=== PATIENT | female | born 1995 | race Caucasian/White ===

== ENCOUNTER 2018-11-01 06:04 | Outpatient (CLI) | payer OTHER ==
[~2018-11-01] VITALS: Ht 167.6 cm; Wt 88.3 kg
--- NOTE | 2018-11-01 07:36 | IPNPDOC ---
Text Note Date of Service The patient was seen on 11/01/18. NOTE 23 yo at 40+1 weeks gestation presented to L&D with worsening contraction pain throughout the day. She had her membranes stripped on Monday. She denies any vaginal bleeding or leakage of fluid. She endorses excellent movement. is uncomplicated. Chaperoned by L&D RN Vitals - VSS, afebrile, normotensive, non tachycardic General - AAO3, sitting up in bed, NAD Abdomen - Gravid uterus, no fundal tenderness Cervix - 2/50/-3 FHR tracing - NST reactive with moderate variability, +accels, no decels, ctx present Patient not in active labor. status reassuring. Discharged home with return precautions. IOL scheduled for next week. DO HELENA Ko CHRISTOPHER J. DO Nov 01, 2018 07:36
[2018-11-01] MEDS ORDERED: PRENTAB9 PO (14:49)
== END 2018-11-01 07:45 | disposition home or self-care (01) ==
LOC: M LDO 06:04
PROVIDERS: ATTEND Obstetrics & Gynecology
DX: O47.1 False labor at or after 37 completed weeks of gestation (principal); Z3A.40 40 weeks gestation of pregnancy
CPT/HCPCS: 59025; G0378; G0463

== ENCOUNTER 2018-11-01 13:39 | Inpatient (IN) | payer OTHER ==
[~2018-11-01] VITALS: Ht 195.6 cm; Wt 97.5 kg
[2018-11-01] MEDS ORDERED: PRENTAB9 PO (14:49)
[2018-11-01] MEDS ORDERED: LACTATED RINGER'S 1000 ML IV STA (16:26)
[2018-11-01] MEDS: LR 1,000 ML IV SCH (16:26)
[2018-11-01 16:36] VITALS: BP 130/82
--- NOTE | 2018-11-01 16:59 | HPEPDOC ---
Obstetrical History & Physical General Date of Admission 11/01/2018 History of Present Illness 23yo at 40+1wks presents to LND with regular, painful contractions that have become longer and stronger throughout the day. Pt reports +FM, denies LOF/VB. Pt is GBS Negative, HIV Negative, Blood Type O Pos. Chief Complaint: Contractions, term Information Provided By: Patient Age: 23 : 1 Term: 0 Pre-term: 0 Abortions: 0 Livin Care Care: Good Care Dating Final EDC: Oct 31, 2018 Final EDC for Daily Update: Oct 31, 2018 Final EDC by: LMP LMP: Jan 24, 2018 1st Trimester Date: Mar 23, 2019 Antepartum Course Diagnos(e)s Uncomplicated . Height (inches): 66 Pre- weight (lbs.): 165 Admission Weight (lbs.): 192 Change in Weight (lbs.): 27 Past Medical History Past Obstetrical History : Past Obstetrical History: Primgravida Past Medical History Surgical History: Denies/None Family History Significant Family History: No pertinent family hx Social History Marital Status: Family situation: Spouse/partner home Psychosocial History: No pertinent psych hx * Smoker: non-smoker Alcohol: Denies Drugs: denies Imunizations Tdap status: current Allergies Coded Allergies: No Known Allergies (Unverified , 11/01/18) Medications Scheduled No.137/Iron/Folic Acd ( Vitamin Tablet) 1 Each Tablet, 1 TAB PO DAILY Physical Examination Physical Examination GENERAL: Alert and oriented times three. BREAST: . ABDOMEN: Gravid and non-tender to touch. FETUS: Is vertex by SVE HEART RATE: Regular rate and rhythm. LUNGS: CTA EXTREMITIES: No edema. No clonus. Pertinent Laboratoy Data Blood Type: O+ Anatomy Ultrasound Ultrasound Date: Jun 13, 2018 Placenta Location: Anterior Normal Anatomy: Yes Placenta Previa: No Vaginal Examination Dilation: 4 cm Effacement: 70% Station: -2 Cervical Consistency: Soft Cervical Position: Middle Presentation: Cephalic presentation Assessment Heart Rate (FHR): 130 Variability: Moderate Accelerations: Positive Decelerations: None Tocometer Contractions: Yes Frequency: regular Assessment/Plan Assessment A: Early active labor, Category I FHT, VSS, EFW 3600g O+, HIV Negative, GBS Negative Plan P: Admit to LND Counseled on labor, r/b/a, possible augmentation; pt consented for admission and delivery PIV start, admission labs drawn Intermittent monitoring with Category I tracing PO and IV hyrdration can have regular diet; change to clear liquids with augmentation Expectant Management Reexamine in 4-6 hours, consider AROM or start pitocin PRN Anticipate Consult with OB if indicated MADELINE GOMES CNM Nov 01, 2018 16:59
[2018-11-01 17:13] LABS: HEMATOCRIT 40.4 % (36.0-47.0); HEMOGLOBIN 13.5 g/dl (12.0-15.5); MEAN CORPUSCULAR HEMOGLOBIN 29.4 pg (27.0-33.0); MEAN CORPUSCULAR HGB CONC 33.4 g/dl (32.0-36.5); PLATELET COUNT, AUTOMATED 269 10^3/uL (150-450); RED BLOOD COUNT 4.59 10^6/uL (4.00-5.40); WHITE BLOOD COUNT 16.8 10^3/uL (4.0-10.0)
[2018-11-01 17:36] VITALS: BP 130/89
[2018-11-01 19:22] VITALS: BP 133/82
--- NOTE | 2018-11-01 20:21 | IPNPDOC ---
Obstetrical Progress Note Date of Service Nov 01, 2018 Subjective t tollerating labor well. excellent control. Pt declines epidural or pain meds. Really wants to try to avoid pain meds. Membranes intact. Pt was check at change of shift ~ 6:3-7pm and was 6 cm Objective Vital Signs Date Time Temp Pulse Resp B/P (MAP) Pulse Ox O2 Delivery O2 Flow Rate FiO2 11/01/18 16:36 80 16 130/82 (98) Assessment Heart Rate (FHR): 145 Variability: Moderate Accelerations: Positive Decelerations: Late, Variable Heart Rate Tracing: Category II Tocometer Contractions: Yes Frequency: every 2-5 min. Duration: greater than 60 seconds Strength: palpated as moderate Assessment and Plan Age: 23 : 1 Term: 0 Pre-term: 0 Abortions: 0 Livin Status: Reassuring Group B Streptococcus: Negative Anticipate: Vaginal Delivery Additional Comments Discussed pros and cons of rupturing membranes. Since she is doing well. in good control, will not rupture membranes SHINE EDGE MD Nov 01, 2018 20:21
[2018-11-01 20:52] VITALS: BP 128/75
[2018-11-01] MEDS ORDERED: OXYTOCIN 30 UNITS IN 0.9% NaCl 500ML IV BAG (J2590) As Ordered ONE (21:33)
[2018-11-01 23:58] VITALS: BP 130/86
[2018-11-02] MEDS: LR 1,000 ML IV SCH ×2 (00:26→19:11)
[2018-11-02 00:28] VITALS: BP 127/58
[2018-11-02 00:43] VITALS: BP 144/63
[2018-11-02 00:58] VITALS: BP 134/68
[2018-11-02] MEDS ORDERED: OXYTOCIN DRIP 30 UNITS in APPROPRIATE DILUENT 1 EA IV SCH (01:02)
--- NOTE | 2018-11-02 01:02 | DNPDOC ---
[facility] Delivery Note Delivery Note DATE OF DELIVERY: [Nov 022018] PREDELIVERY DIAGNOSIS: [41]-[1]/7 weeks' gestation and labor. POST DELIVERY DIAGNOSIS: Delivered. PROCEDURE: [Spontaneous vaginal delivery EMPLOYMENT TRAINING SPECIALIST: Dr. Joe] ANESTHESIA: [none for Labor and delivery, local for repair of First degree laceration]. ESTIMATED BLOOD LOSS: [300] mL. FINDINGS: [7] pound [13] ounce [female] , Score [8]/[9] DELIVERY SUMMARY: Patient is a [23]-year-old [1] now para [0]-[0]-[o]-[o] who was admitted to labor and delivery adited in labor. Arom , clear fluid. over first degree perineallaceration repaired with 3- vicryl . Rectal-vaginal exam after repair. Cord blood obtained for blood type and antibody screen. Sponge count 5/5. SHINE EDGE MD Nov 02, 2018 01:02
[2018-11-02] MEDS ORDERED: DOCUSATE SODIUM 100 MG CAP PO PRN (01:15)
[2018-11-02] MEDS ORDERED: MEASLES,MUMPS,RUBELLA VACCINE INJ (MMR-II) (90707) SC SCH (01:15)
[2018-11-02] MEDS ORDERED: ACETAMINOPHEN TAB 650MG DOSE (2X325MG) PO PRN (01:15)
[2018-11-02] MEDS ORDERED: IBUPROFEN 600 MG TAB PO PRN (01:15)
[2018-11-02] MEDS ORDERED: DIBUCAINE 1% OINTMENT 30GM TOP PRN (01:15)
[2018-11-02] MEDS ORDERED: ACETAMINOPHEN 500 MG TAB PO PRN (01:15)
[2018-11-02] MEDS ORDERED: ANUSOL HC CREAM 30GM TOP PRN (01:15)
[2018-11-02] MEDS ORDERED: LIDOCAINE 1% MDV 20ML VIAL INFIL ONE (01:15)
[2018-11-02] MEDS ORDERED: IBUPROFEN 800 MG TAB PO PRN (01:15)
[2018-11-02] MEDS ORDERED: RHOGAM 300 MCG (1500 IU) INJ (J2790) IM SCH (01:15)
[2018-11-02] MEDS ORDERED: METHYLERGONOVINE MALEATE 0.2 MG TAB PO PRN (01:15)
[2018-11-02 02:20] VITALS: BP 121/74
[2018-11-02 06:00] VITALS: BP 103/61
[2018-11-02] MEDS: PRENATAL VITAMINS CHEWABLE TABLET PO SCH (08:41)
--- NOTE | 2018-11-02 09:16 | IPNPDOC ---
Progress Note Date of Service: Nov 02, 2018 Day#: 1 Progress Note SUBJECT: Roxane is a 23-year-old 1 now Para 1001 status post uncomplicated spontaneous vaginal delivery at 41-1/7 weeks' at approximately 23:51 hours on 01Nov2018 of a Female with post vaginal 1MLL repair, doing well day 1. She has been ambulating, voiding spontaneously without issue and tolerating regular diet. Breast feeding without issue. Reports lochia is is decreasing. Reports some cramping with . Denies any other pain. OBJECTIVE: VITAL SIGNS: Within normal limits, afebrile. Alert and oriented times three. Abdomen: Fundus firm at U-2. Soft, NTTP. Minimal lochia. ASSESSMENT: S/p uncomplicated after being admitted in labor. Vitals within normal limits, afebrile, hemodynamically stable with no evidence of infection. PLAN: 1. Discharge to home tomorrow. 2. Tylenol and Motrin for pain. 3. Encourage breast feeding and ambulation. 4. Routine PP care 5. Routine PP visit in 6 weeks in clinic. MD Donato VS, I&O, 24H, [facility] Vital Signs/I&O Vital Signs Date Time Temp Pulse Resp B/P (MAP) Pulse Ox O2 Delivery O2 Flow Rate FiO2 11/02/18 06:00 98.4 84 17 103/61 (75) I&O- Last 24 Hours up to 6 AM 11/02/18 06:00 Intake Total 1300 ml Output Total 700 ml Balance 600 ml Laboratory Data 24H LABS Laboratory Tests 2 11/01/18 16:34: Nucleated Red Blood Cells % (auto) 0.0 11/01/18 16:54: Serology Scanned Report Hepatitis B Testing CBC/BMP Laboratory Tests 11/01/18 16:34 Red Blood Count 4.59, Mean Corpuscular Volume 88.0, Mean Corpuscular Hemoglobin 29.4, Mean Corpuscular Hemoglobin Concent 33.4, Red Cell Distribution Width 13.4 ESTEFANIA VOSS MD Nov 02, 2018 09:16
[2018-11-02 17:50] VITALS: BP 121/59
[2018-11-03] MEDS: LR 1,000 ML IV SCH (00:26)
[2018-11-03 06:00] VITALS: BP 120/70
[2018-11-03] MEDS ORDERED: ACET-683 PO (06:54)
[2018-11-03] MEDS ORDERED: IBUP80TA PO (06:54)
[2018-11-03] MEDS: PRENATAL VITAMINS CHEWABLE TABLET PO SCH (10:20)
== END 2018-11-03 12:00 | disposition home or self-care (01) | DRG 807 ==
LOC: M LDO 13:39 → M LDI 16:48 → M OBS 11-02 02:20
PROVIDERS: ADMIT Registered Nurse Maternal Newborn; ATTEND Obstetrics & Gynecology
PROC: 10907ZC Drainage of Amniotic Fluid, Therapeutic from Products of Conception, Via Natural or Artificial Opening (ICD-10-PCS; 2018-11-01)
PROC: 10E0XZZ Delivery of Products of Conception, External Approach (ICD-10-PCS; principal; 2018-11-02)
PROC: 0HQ9XZZ Repair Perineum Skin, External Approach (ICD-10-PCS; 2018-11-02)
DX: O48.0 Post-term pregnancy (principal); Z37.0 Single live birth; Z3A.40 40 weeks gestation of pregnancy; O70.0 First degree perineal laceration during delivery

== ENCOUNTER 2018-11-07 19:13 | Emergency (ER) | payer OTHER ==
[~2018-11-07] VITALS: Ht 167.6 cm; Wt 79.1 kg
[~2018-11-07 19:13] MED LIST: ACET-683 PO; IBUP80TA PO; PRENTAB9 PO
[2018-11-07 20:17] LABS: HEMATOCRIT 37.5 % (36.0-47.0); HEMOGLOBIN 12.3 g/dl (12.0-15.5); MEAN CORPUSCULAR HEMOGLOBIN 28.6 pg (27.0-33.0); MEAN CORPUSCULAR HGB CONC 32.8 g/dl (32.0-36.5); MEAN CORPUSCULAR VOLUME 87.2 fl (80.0-96.0); PLATELET COUNT, AUTOMATED 311 10^3/uL (150-450)
[2018-11-07 20:21] LABS: APPEARANCE, URINE CLEAR (CLEAR); BACTERIA, URINE AUTO 1+ (NEGATIVE); BILIRUBIN, URINE AUTO NEGATIVE (NEGATIVE); BLOOD, URINE BLOOD 2+ (NEGATIVE); COLOR, URINE YELLOW (YELLOW); GLUCOSE, URINE (UA) AUTO NEGATIVE (NEGATIVE); KETONE, URINE AUTO NEGATIVE (NEGATIVE); LEUKOCYTE ESTERASE, URINE AUTO 3+ (NEGATIVE); MUCUS, URINE SMALL (NEGATIVE); NITRITE, URINE AUTO NEGATIVE (NEGATIVE); PROTEIN, URINE AUTO NEGATIVE (NEGATIVE); RBC, URINE AUTO 2 /HPF (0-3); SQUAMOUS EPITHELIAL CELL UR AU 0 /HPF (0-6); UROBILINOGEN, URINE AUTO 0.2 mg/dL (0.0-2.0); WBC, URINE AUTO 23 /HPF (0-3)
[2018-11-07 20:36] LABS: ALBUMIN 3.1 GM/DL (3.2-5.2); ALT/SGPT 34 U/L (12-78); BILIRUBIN,TOTAL 0.3 MG/DL (0.2-1.0); BLOOD UREA NITROGEN 6 MG/DL (7-18); CALCIUM LEVEL 9.3 MG/DL (8.5-10.1); CARBON DIOXIDE LEVEL 29 MEQ/L (21-32); CHLORIDE LEVEL 107 MEQ/L (98-107); CREATININE FOR GFR 0.56 MG/DL (0.55-1.30); GLOMERULAR FILTRATION RATE > 60.0 (>60); GLUCOSE, FASTING 77 MG/DL (70-100); POTASSIUM SERUM 3.6 MEQ/L (3.5-5.1); SODIUM LEVEL 140 MEQ/L (136-145); TOTAL PROTEIN 6.8 GM/DL (6.4-8.2)
--- NOTE | 2018-11-07 23:11 | REPVR ---
EXAM: US Pelvis Complete, Transabdominal EXAM DATE/TIME: 11/07/2018 10:28 PM CLINICAL HISTORY: 23 years old, female; Other: Fever; Additional info: Fever ? retained poc TECHNIQUE: Imaging protocol: Real-time transabdominal pelvic ultrasound with image documentation. Complete exam. COMPARISON: No relevant prior studies available. FINDINGS: Uterus measures 14.6 x 6.8 x 11 cm in size consistent with state. No focal uterine mass. Endometrial stripe appears homogeneous, measuring 4-5 mm in thickness. No hypervascular endometrial material or clot Right ovary measures 3.8 x 2.5 x 3.5 cm in size. No dominant mass or cyst. Left ovary measures 3.8 x 3.2 x 3.0 cm in size. No dominant mass or cyst. No abnormal volume of free fluid within the pelvis. IMPRESSION: Unremarkable pelvic ultrasound in a patient. No evidence of retained products of conception or other complication Electronically signed by: Jeremi Chaney On 11/07/2018 23:10:17 PM
[2018-11-07] MEDS ORDERED: CEPHALEXIN 500 MG CAP PO ONE (23:30)
[2018-11-07] MEDS ORDERED: KEFL500C17 PO (23:49)
[2018-11-08 00:20] VITALS: BP 126/81
== END 2018-11-08 00:31 | disposition home or self-care (01) ==
LOC: M ED 19:13
DX: O86.20 Urinary tract infection following delivery, unspecified (principal)
CPT/HCPCS: 36415; 76856; 80053; 81001; 85027; 87086; 99284; G0463

== ENCOUNTER 2020-09-25 12:50 | Inpatient (IN) | payer OTHER ==
[~2020-09-25] VITALS: Ht 167.6 cm; Wt 88.1 kg
[2020-09-25] VITALS (10 sets, daily range): BP systolic 124–157; BP diastolic 69–82
[~2020-09-25 12:50] MED LIST changes: +KEFL500C17 PO
[2020-09-25] MEDS ORDERED: MULTTAB20 PO (13:07)
[2020-09-25] MEDS ORDERED: PENICILLIN G POTASSIUM IV 5 MU in D5W MINI-BAG PLUS 100 ML IV STA (14:08)
[2020-09-25] MEDS ORDERED: LIDOCAINE 1% MDV 20ML VIAL INFIL PRN (14:10)
[2020-09-25] MEDS ORDERED: OXYTOCIN DRIP 30 UNITS in IV 1 EA IV PRN (14:10)
[2020-09-25 14:45] LABS: HEMATOCRIT 41.5 % (36.0-47.0); HEMOGLOBIN 13.7 g/dl (12.0-15.5); MEAN CORPUSCULAR HEMOGLOBIN 28.7 pg (27.0-33.0); PLATELET COUNT, AUTOMATED 256 10^3/uL (150-450); RED BLOOD COUNT 4.77 10^6/uL (4.00-5.40); WHITE BLOOD COUNT 20.3 10^3/uL (4.0-10.0)
--- NOTE | 2020-09-25 14:46 | HPEPDOC ---
Obstetrical History & Physical General Date of Admission Sep 25, 2020 at 14:10 History of Present Illness Pt presenting with frequent contractions today and SROM clear at 1200. Denies karlie hays, states frequent movement. Chief Complaint: Contractions, term, LOF, term Information Provided By: Patient Age: 25 : 2 Term: 1 Pre-term: 0 Abortions: 0 Livin Care Care: Good Care Dating Final EDC: Sep 24, 2020 Final EDC for Daily Update: Sep 24, 2020 Final EDC by: LMP LMP: Dec 05, 2019 Estimated Date of Confinement: Sep 24, 2020 EGA at Admission: 40 (+1) Antepartum Course Diagnos(e)s GBS+, normal Height (inches): 66 Pre- weight (lbs.): 168 Admission Weight (lbs.): 193 Change in Weight (lbs.): 25 Past Medical History Past Obstetrical History : Past Obstetrical History: Multigravida Date of Delivery: Nov 01, 2018 Gestation: 40 (+1) Type of Delivery: Spontaneous Vaginal Del. Weight of (grams): 3200 Complications: No PRECONSTRUCTION MANAGER History: No pertinent history Past Medical History Medical History denies Surgical History: Appendectomy Family History Significant Family History: Asthma (siblings), Cancer (mgf colon cancer), Diabetes (pgf), Heart disease (mgm), Hypertension (mgm) Social History Marital Status: * Smoker: non-smoker Alcohol: Denies Drugs: denies Abuse Violence Screening Have you been hit/kicked/slapp: No Have you been sexually assault: No Imunizations Tdap status: current Influenza Status: declined Allergies Coded Allergies: No Known Allergies (Unverified , 11/07/18) Medications Scheduled No122/Iron/Folic Acid ( Multi Tablet) 1 Each Tablet, 1 TAB PO DAILY Physical Examination Physical Examination GENERAL: Alert and oriented times three. BREAST: . ABDOMEN: Gravid and non-tender to touch. FETUS: Is vertex (VTX) by sterile vaginal examination (SVE), fetus is vertex (VTX) by Oliver. HEART RATE: Regular rate and rhythm. LUNGS: Clear to auscultation (CTA). EXTREMITIES: No edema. No clonus. Deep tendon reflexes (DTRs) + 2. Vital Signs/I&O Vital Signs Date Time Temp Pulse Resp B/P (MAP) Pulse Ox O2 Delivery O2 Flow Rate FiO2 09/25/20 13:04 98.4 97 18 133/75 (94) Laboratory Data 24H LABS Laboratory Tests 2 09/25/20 14:19: Serology Scanned Report Hepatitis B Testing Pertinent Laboratoy Data Blood Type: O+ RBC Antibody Screen: Negative HIV: Negative Hepatitis B: Negative Rapid Plasma Reagin: Nonreactive Rubella: Immune Varicella: Immune Chlamydia/Gonorrhea: Negative Group B Streptococcus: Positive Quad Screen Test: Positive Cystic Fibrosis: Negative Glucose Tolerance Test: 127 Anatomy Ultrasound Ultrasound Date: Jun 08, 2020 Placenta Location: Anterior Normal Anatomy: Yes Placenta Previa: No Steroid Therapy Steroid Therapy: No Vaginal Examination Dilation: 5 cm Effacement: 80% Station: -2 Cervical Consistency: Soft Cervical Position: Posterior Presentation: Cephalic presentation Assessment Heart Rate (FHR): 140 Variability: Moderate Accelerations: Positive Decelerations: None Tocometer Contractions: Yes Frequency: every 1-5 min. Duration: greater than 60 seconds Strength: palpated as moderate Multi-drug resistant Organism: No history of MDRO Assessment/Plan Assessment Roxane is a 25-year-old (G)2 para (P)1 at 40+1 weeks by 8+0-week ultrasound. Presents to Labor and Delivery (L&D) for c/o contractions and SROM clear at noon. Plan Admit and orient. Business Development and consent. Diet: reg. Group B Streptococcus (GBS) positive, initiate GBS prophylaxis. Intermittent auscultation per protocol. Labs and intravenous (IV) per unit protocol. Counseled on Pitocin and induction of labor (IOL). Saline lock iv. Encourage frequent maternal movement Anticipate normal spontaneous delivery (). C-S as appropriate. AMPARO SORENSEN CNM Sep 25, 2020 14:46
[2020-09-25] MEDS ORDERED: PENICILLIN G POTASSIUM IV 2.5 MU in IV 1 EA IV SCH (19:00)
[2020-09-25] MEDS ORDERED: DIBUCAINE 1% OINTMENT 30GM TOP PRN (19:15)
[2020-09-25] MEDS ORDERED: MEASLES,MUMPS,RUBELLA VACCINE INJ (MMR-II) (90707) SC SCH (19:15)
[2020-09-25] MEDS ORDERED: RHOGAM 300 MCG (1500 IU) INJ (J2790) IM SCH (19:15)
[2020-09-25] MEDS ORDERED: DOCUSATE SODIUM 100MG CAPSULE PO PRN (19:15)
[2020-09-25] MEDS ORDERED: METHYLERGONOVINE MALEATE 0.2 MG TAB PO PRN (19:15)
[2020-09-25] MEDS ORDERED: ACETAMINOPHEN TAB 650MG DOSE (2X325MG) PO PRN (19:15)
--- NOTE | 2020-09-25 19:53 | DNPDOC ---
[facility] Delivery Note Delivery Note DATE OF DELIVERY: 25Sep2020 PREDELIVERY DIAGNOSIS: 40-1/7 weeks' gestation and labor. POST DELIVERY DIAGNOSIS: Delivered. PROCEDURE: Spontaneous vaginal delivery. EMERGENCY TECHNICIAN: Denise Sorensen CNM ANESTHESIA: none. ESTIMATED BLOOD LOSS: 150 mL. FINDINGS: Female Thalia, Score 8/9, nuchal cord times two. DELIVERY SUMMARY: Patient is a 25-year-old 2 now para 2 who was admitted to labor and delivery for active Labor on 25Sep2020. Pt called out with pressure and urge to push and was found to be c/c/+2. Brisk decent was made with maternal pushing efforts to in OA with restitution to SKYLER. A tight double nuchal cord was noted after delivery of the head. The left anterior shoulder delivered with gentle downward traction easily followed by the posterior shoulder. The was somersaulted towards the maternal left thigh and the cord manually reduced. The was placed immediately on the maternal abdomen where she was dried and stimulated to cry. Pitocin infusion was initiated per protocol. The cord was clamped x2 after pulsation ceased and cut by the FOB. The placenta delivered spontaneously in Ziegler presentation with minimal bleeding. The cervix and vagina were swept for a small clot, the fundus firmed immediately and bleeding slowed appropriately. Examination of the perineum revealed an abrasion with minimal bleeding which ceased with pressure. Mother and baby entered the recovery phase in stable condition, with skin to skin uninterrupted and initiated. DENISE SORENSEN CNM Sep 25, 2020 19:53
[2020-09-25] MEDS: IBUPROFEN 800 MG TAB PO PRN (21:12)
[2020-09-26 06:00] VITALS: BP 129/75
--- NOTE | 2020-09-26 08:30 | IPNPDOC ---
Progress Note Date of Service: Sep 26, 2020 Day#: 1 Progress Note SUBJECT: Mrs. Roxane Powell is a 25yo who is PPD#1 s/p an uncomplicated . This morning, she reports that her pain is well controlled; she has been ambulating; voiding spontaneously; passing flatus; and tolerating a regular diet. She is breast feeding without issue and reports that her lochia is like a normal period. She plans to use condoms for contraception. OBJECTIVE: VITAL SIGNS: Within normal limits, afebrile. Gen: Alert and oriented times three. Pulm: No increased WOB CV: Heart rate: non-tachy Abd: Fundus firm at U-2. Soft, NTTP. ASSESSMENT: Mrs. Powell is a 25yo PPD1 s/p an uncomplicated T- who is hemodynamically stable with no evidence of infection. PLAN: 1. Discharge to home likely tomorrow. 2. Tylenol and Motrin for pain. 3. Encourage breast feeding and ambulation. 4. Routine PP visit in 6-weeks at the [facility]. 5. Discussed return precautions at length to include lifting restrictions and pelvic rest. Jaylyn Bond., Ph.D. FILI Staff VS, I&O, 24H, [facility] Vital Signs/I&O Vital Signs Date Time Temp Pulse Resp B/P (MAP) Pulse Ox O2 Delivery O2 Flow Rate FiO2 09/26/20 06:00 97.6 89 17 129/75 (93) 96 Room Air I&O- Last 24 Hours up to 6 AM 09/26/20 06:00 Intake Total 700 ml Output Total 750 ml Balance -50 ml Laboratory Data 24H LABS Laboratory Tests 2 09/25/20 14:19: Serology Scanned Report Hepatitis B Testing 09/25/20 14:34: Nucleated Red Blood Cells % (auto) 0.0, Syphilis Serology NONREACTIVE CBC/BMP Laboratory Tests 09/25/20 14:34 VAUGHN MEEHAN M.D. Sep 26, 2020 08:30
[2020-09-26] MEDS: PRENATAL VITAMINS CHEWABLE TABLET PO SCH (11:35)
[2020-09-26 18:00] VITALS: BP 118/58
[2020-09-27] MEDS: IBUPROFEN 800 MG TAB PO PRN (02:20)
[2020-09-27 06:00] VITALS: BP 130/68
[2020-09-27] MEDS ORDERED: IBUP80TA PO (08:01)
[2020-09-27] MEDS ORDERED: DOK1CAP7 PO (08:01)
[2020-09-27] MEDS: PRENATAL VITAMINS CHEWABLE TABLET PO SCH (08:14)
--- NOTE | 2020-09-27 08:32 | DSES ---
DISCHARGE SUMMARY DATE OF ADMISSION: 09/25/2020 DATE OF DISCHARGE: 09/27/2020 BRIEF HISTORY: This lady is a 25-year-old 2, now para 2, admitted 40 weeks gestation in active labor. Spontaneous vaginal delivery of a male infant 7 pounds 11 ounces, 3500 grams. Apgars of 8 and 9 at one and five minutes respectively. She was GBS positive. DISCHARGE PHYSICAL EXAMINATION: The rest of the examination unremarkable. Normocephalic, atraumatic. Neck with full range of motion. Pupils equal and reactive to light. Distal pulses symmetric. No evidence of DVT, PE, or superficial phlebitis. Chest clear bilaterally to the bases. No wheezes or rhonchi. No CVA tenderness. Abdomen soft with four quadrant bowel sounds noted. Perineum is intact. Uterus 2 below. Lochia moderate. No complaints of rashes or pruritus. No joint pain. No nausea, vomiting, diarrhea, or constipation. No urgency or frequency. DISCHARGE SUMMARY: Term gestation delivered a live male . Plans are for discharge today. Pickup medications at [facility]. Six week checkup at [facility]. All questions were answered, 20 minute discussion. The patient was discharged improved. Her vital signs on discharge a blood pressure 130/68, respirations 18, pulse 67, temperature 97.6. Her admitting hemoglobin was 13.3, hematocrit 41.5, and platelets 256,000.
== END 2020-09-27 10:58 | disposition home or self-care (01) | DRG 807 ==
LOC: M LDO 12:50 → M LDI 14:10 → M OBS 20:45
PROVIDERS: ADMIT Registered Nurse; ATTEND Registered Nurse
PROC: 10E0XZZ Delivery of Products of Conception, External Approach (ICD-10-PCS; principal; 2020-09-25)
DX: O99.824 Streptococcus B carrier state complicating childbirth (principal); Z37.0 Single live birth; Z3A.40 40 weeks gestation of pregnancy; O69.1XX0 Labor and delivery complicated by cord around neck, with compression, not applicable or unspecified